=== PATIENT | female | born 1945 | race Caucasian/White ===

== ENCOUNTER 2022-05-09 10:07 | Day surgery (SDC) | payer MEDICARE, SELFPAY ==
[2022-05-03 15:17] VITALS: BMI 26.2
--- NOTE | 2022-05-08 09:41 | HO.ANESPROP2 ---
Documented by User: Keyona Anguiano NP 05/08/22 09:43 HPI - Anesthesia Eval Consult details Narrative: 77yo F for Left Eye Muscle lateral rectus and medial rectus Recession Medically cleared PMFSH Past Medical History Medical History 6th nerve palsy Arthritis Caregiver stress Dry eye Elevated blood pressure reading GERD (gastroesophageal reflux disease) Hx of malignant melanoma Hx of skin cancer, basal cell Hx of smoking Hyperglycemia Hypogammaglobulinemia Osteoporosis Surgical History Surgical History H/O vulvectomy Hx of bilateral cataract extraction Hx of colonoscopy Social History Social History Are you a primary administrator health care facility to a significant other at home: Yes () Do you presently have visiting nurse or other home services: No Patient Tobacco Use Status: Former Tobacco user Quit Date: 1985 Tobacco use type: Cigarette Use of substances other than those prescribed or required for medical reasons: No Have you been hit, kicked, punched, or otherwise hurt by someone within the past year? If so, by whom?: No Are you DNR?: No Advance Directives: No (will bring dos) Advance Directives Information Provided: Yes Advance Directives on File: No Recently lost weight without trying: No Nutrition Risks: No Nutritional Risk Meds Allergies Allergy/AdvReac Type Severity Reaction Status Date / Time Penicillins Allergy Intermediate itchy rash Verified 05/03/22 15:17 Home Medications Medication Instructions Recorded Confirmed Last Taken Type Caltrate 600 plus D PO BID 05/03/22 Unknown History docusate sodium 100 mg capsule 300 mg PO DAILY PRN Constipation 05/03/22 05/03/22 Unknown History (Colace) Exam Exam Date and Time: May 08, 2022 0941 Height,Weight and Vital Signs: Height 5 ft 1 in Weight 63.1 kg Assessment and Plan Assessment Anesthesia Assessment: Chart Reviewed Documented by User: Jaclyn Daly MD 05/09/22 13:20 PMFSH Past Medical History Medical History 6th nerve palsy Arthritis Caregiver stress Dry eye Elevated blood pressure reading GERD (gastroesophageal reflux disease) Hx of malignant melanoma Hx of skin cancer, basal cell Hx of smoking Hyperglycemia Hypogammaglobulinemia Osteoporosis Surgical History Surgical History H/O vulvectomy Hx of bilateral cataract extraction Hx of colonoscopy History of Problems with Anesthesia: No Social History Social History Are you a primary administrator health care facility to a significant other at home: Yes () Do you presently have visiting nurse or other home services: No Patient Tobacco Use Status: Former Tobacco user Quit Date: 1985 Tobacco use type: Cigarette Use of substances other than those prescribed or required for medical reasons: No Have you been hit, kicked, punched, or otherwise hurt by someone within the past year? If so, by whom?: No Are you DNR?: No Advance Directives: No (will bring dos) Advance Directives Information Provided: Yes Advance Directives on File: No Recently lost weight without trying: No Nutrition Risks: No Nutritional Risk Meds Allergies Allergy/AdvReac Type Severity Reaction Status Date / Time Penicillins Allergy Intermediate itchy rash Verified 05/03/22 15:17 Home Medications Medication Instructions Recorded Confirmed Last Taken Type Caltrate 600 plus D PO BID 05/03/22 Unknown History docusate sodium 100 mg capsule 300 mg PO DAILY PRN Constipation 05/03/22 05/03/22 Unknown History (Colace) Exam Airway Mallampati Class: III TM Dist: >3cm Neck ROM: Limited Loose/Missing/Broken Teeth: No Heart: RRR Lungs: CTA Assessment and Plan Assessment Anesthesia Assessment: Anesthesia Plan Discussed Final Anesthetic Review History of Problems with Anesthesia: No NPO: Yes ASA Class: II Final Preanesthetic Review: Meds/Allgs Chart Reviewed, Consent Obtained/Reviewed and Anes Risks/Benef Reviewed Patient Risk: Low Procedure Risk: Low Anesthetic Plan Anesthetic Plan: GA Disposition: Standard PACU
[2022-05-09] VITALS (9 sets, daily range): BP systolic 137–155; BP diastolic 65–82; PULSE 68–91; RESP 16–20; TEMP 36.1–36.5; O2SAT 97–100; BMI 25.4
[2022-05-09] MEDS: Lactated Ringers 1,000 ML 100 ML IVCONT (11:21)
--- NOTE | 2022-05-09 13:47 | HO.OPHTHAL ---
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 Procedures 1. Recession of left medial rectus muscle 4.5 mm 2. Resection of left lateral rectus muscle [address] Vallejo anesthesia general complications none. The patient was brought to the operating room and placed under general anesthesia. The patient's left eye was prepped and draped in the usual sterile ophthalmic fashion. A lid speculum was placed in the eye and an incision was made down to bare sclera in the inferonasal fornix. The medial rectus muscle was hooked and secured with a double-armed Vicryl suture. The muscle was then disinserted the globe and reattached to a position 4.5 mm behind the original insertion. Conjunctiva was closed with interrupted Vicryl sutures. An incision was then made down to bare sclera in the inferotemporal fornix. The lateral rectus muscle was hooked and dissected free of its surrounding fascial attachments. It was secured at the insertion with a Avelino muscle clamp. A 7 mm resection was marked off with cautery. The resection point was secured with a double-armed Vicryl suture and the distal muscle resected. The resection point was then Attached to the original insertion. Conjunctiva was closed with interrupted Vicryl sutures. The patient was then awoken from general anesthesia and discharged to postoperative recovery in good condition.
[2022-05-09] MEDS: Tetracaine HCl/PF 0.5% Oph Sol 4 ML DROPS 1 DROP EYE-LEFT ×2 (14:30→14:57)
[2022-05-09] MEDS: Acetaminophen 325 MG TABLET 650 MG PO (14:56)
== END 2022-05-09 15:33 | disposition home or self-care (01) ==
PROVIDERS: PCP Internal Medicine; Visit Provider Ophthalmology
PROC: (CPT 67312; principal; 2022-05-09 12:10)
DX: H49.22 Sixth [abducent] nerve palsy, left eye (principal); H50.00 Unspecified esotropia; I10 Essential (primary) hypertension; M81.0 Age-related osteoporosis without current pathological fracture; D80.1 Nonfamilial hypogammaglobulinemia; Z79.899 Other long term (current) drug therapy; Z88.0 Allergy status to penicillin; Z85.820 Personal history of malignant melanoma of skin; Z85.828 Personal history of other malignant neoplasm of skin; Z87.891 Personal history of nicotine dependence; Z98.890 Other specified postprocedural states
CPT/HCPCS: 67312; J3010